=== PATIENT | male | born 1955 | race Caucasian/White ===

== ENCOUNTER 2019-03-28 10:40 | Inpatient (IN) ==
[2019-03-28 11:30] LABS: BASO# 0.02 X1000 (0.0-0.2); BASO% 0.1 % (0.0-0.8); EOS# 0.02 X1000 (0.0-0.7); EOS% 0.1 % (0.0-10.0); HEMATOCRIT 41.1 % (42.0-52.0); HEMOGLOBIN 13.6 g/dL (14.0-18.0); LYMPH# 1.53 X1000 (1.2-3.4); LYMPH% 6.5 % (20.5-51.1); MCH 29.4 PG (27-31); MCHC 33.1 g/dL (33-37); MONO# 1.99 X1000 (0.11-0.59); MONO% 8.5 % (1.7-9.3); MPV 10.8 FL (7.4-10.4); NEUT% 84.8 % (42.2-75.2); PLT 232 X1000 (130-400); RBC 4.62 XMIL (4.7-6.1); RDW 14.1 % (11.5-14.5); WBC 23.36 X1000 (4.8-10.8)
[2019-03-28 11:49] LABS: ALB/GLOB RATIO 1.4; BANDS 3 % (0-1); CALCIUM 9.5 mg/dL (8.8-10.2); CREATININE 1.3 mg/dL (0.7-1.2); LYMPHS 6 % (21-51); MONO 2 % (1-9); POTASSIUM 4.4 mmol/L (3.5-5.1); SEGS 80 % (42-75); TOTAL BILIRUBIN 0.6 mg/dL (0.20-1.00); TOTAL PROTEIN 6.8 g/dL (6.3-8.3)
[2019-03-28 11:50] LABS: HYPOCHROM 1+; URINE SOURCE CLEAN CATCH
[2019-03-28 11:55] LABS: BILIRUBIN URINE NEGATIVE (NEGATIVE); BLOOD URINE TRACE (NEGATIVE); COLOR YELLOW; GLUCOSE URINE >1000 mg/dL (NEGATIVE); KETONE URINE NEGATIVE (NEGATIVE); LEUKOCYTES URINE NEGATIVE (NEGATIVE); NITRITE URINE NEGATIVE (NEGATIVE); PROTEIN URINE 100 mg/dL (NEGATIVE); SP GRAVITY URINE 1.018; TURBIDITY URINE CLEAR (CLEAR); UROBILINOGEN URINE NORMAL (NORMAL)
[2019-03-28 11:57] LABS: UR EPITHELIAL CELLS <10 /HPF (<10); URINE BACTERIA NEGATIVE /HPF; URINE RBC <10 /HPF (<10); URINE WBC <10 /HPF (<10)
[2019-03-28] MEDS ORDERED: ROCEPHIN 1 GM in NS 50 ML IV ONE (14:09)
[2019-03-28 14:20] LABS: INR 1.01; PROTIME 13.4 Seconds (11.0-16.0)
[2019-03-28 14:21] LABS: PTT 34.1 Seconds (22.3-41.8)
--- NOTE | 2019-03-28 14:49 | Diag Imaging Result Doc PS360 ---
EXAM: CHEST-1 VIEW HISTORY: sepsis protocol TECHNIQUE: Single view COMPARISON: 01/25/2017 FINDINGS: The lungs are well expanded. The heart is not enlarged. The vessels are not distended. There are no infiltrates. No effusion identified. IMPRESSION: No pneumonia Electronically signed by Mainor Gonzalez 03/28/2019 2:47 PM
--- NOTE | 2019-03-28 14:53 | Diag Imaging Result Doc PS360 ---
EXAM: CT ABD/PELVIS W/IV CONT ONLY HISTORY: r/o appi rlq [id number] TECHNIQUE: CT abdomen and pelvis with intravenous contrast, but without oral contrast. COMPARISON: None. FINDINGS: There is fatty infiltration of the liver. No calcified gallstones or adjacent inflammation. Normal spleen, pancreas, and adrenal glands. The right kidney is hypertrophic. 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 No hydronephrosis. Normal aorta. The appendix is markedly distended with a diameter approaching 18 mm. There are several appendicoliths. There are adjacent inflammatory changes. No free air. No abscess. No bowel obstruction. There are small scattered mesenteric nodes. The urinary bladder is distended and appears normal. The prostate is not enlarged. There are several scattered distal colonic diverticula. IMPRESSION: Acute appendicitis This report was discussed with Dr. Singh in the emergency room on 03/28/2019 at 2:50 PM and was readback. This exam was performed using automated exposure control, adjustment of mA or kV according to patient size, and/or use of iterative reconstruction technique. Electronically signed by Mainor Gonzalez 03/28/2019 2:51 PM
[2019-03-28] MEDS ORDERED: MORPHINE IV ONE (15:05)
[2019-03-28] MEDS ORDERED: ZOFRAN IV ONE (15:05)
[2019-03-28] MEDS ORDERED: MORPHINE IV PRN (15:06)
[2019-03-28] MEDS ORDERED: NS 1,000 ML IV ONE (15:06)
[2019-03-28] MEDS ORDERED: ZOFRAN PO PRN (15:06)
--- NOTE | 2019-03-28 15:21 | PROVIDER DOCUMENTATION ---
This chart was entered by Roselyn Powell Scribe, acting as scribe for Carl Singh DO. HPI-Abdominal Pain/GI Problem - General Chief Complaint: Abdominal Pain Stated Complaint: [facility] REF-CAT ABDOMINAL PAIN Time Seen by Provider: 03/28/19 14:09 Source: patient Allergies/Adverse Reactions: Patient Allergies Allergy/AdvReac Type Severity Reaction Status Date / Time No Known Allergies Allergy Verified 03/28/19 14:25 - History of Present Illness-ABD Nature of Presenting Problems: 63yom presents to ED cc RLQ and LLQ pain, nausea and decreased appetite for last 2 days that started after eating grapenuts. Pt denies V/D/CP. Pt has hx of DM and has only his right kidney and is follwed by [facility]. Abdominal Pain Onset Location: reports: RLQ, LLQ Quality of Pain: reports: sharp Severity in ED: reports: moderate Onset/Duration: reports: 3 days ago Timing: reports: still present Activities at Onset: reports: eating Exposure to sick contacts?: No Modifying Factors: worse with: palpation Associated Symptoms: reports: nausea. denies: diarrhea, fever/chills, vomiting Dark Stools Present?: reports: none noticed Rectal Bleeding: reports: none Rectal Pain: reports: none Emesis Description: reports: none Bruising or Bleeding Gums?: No Similar Symptoms Previously?: Yes Recently seen or treated by another doctor?: Yes (was seen at [facility] this morning) Review of Systems - Adult - REVIEW OF SYSTEMS - ADULT Constitutional: reports: see HPI. denies: chills, fever, fatique Eyes: reports: no symptoms reported Ears, Nose, Mouth & Throat: reports: no symptoms reported Cardiovascular: reports: see HPI. denies: chest pain, palpitations, syncope Respiratory: reports: no symptoms reported Gastrointestinal: reports: see HPI, abdominal pain (LLQ and RLQ), nausea, poor appetite. denies: constipation, diarrhea, vomiting Genitourinary: reports: no symptoms reported Musculoskeletal: reports: no symptoms reported Integumentary: reports: no symptoms reported Neurological: reports: no symptoms reported Psychiatric: reports: no symptoms reported Endocrine: reports: no symptoms reported Hematologic/Lymphatic: reports: no symptoms reported Allergic/Immunologic: reports: no symptoms reported All Other Systems: Reviewed and Negative Past History - Adult - PAST MEDICAL HISTORY-ADULT Review of Records: reports: Nursing Assessment Review, Medications Reviewed, Social history reviewed & non-contributory. Major Childhood Illnesses: reports: denies history Cardiovascular: reports: denies history Respiratory: reports: denies history Gastrointestinal: reports: denies history Obstetrical/Gynecological: reports: denies history Genitourinary: reports: denies history Musculoskeletal: reports: denies history Neurological: reports: denies history Endocrine/Immune: reports: denies history Other Conditions: reports: denies history - IMMUNIZATION STATUS Childhood Immunizations: See Nurse Assessment Flu Vaccine: See Nurse Assessment - FAMILY HISTORY Family History: reviewed, not pertinent - SOCIAL HISTORY Smoking: denies Physical Exam-General - PHYSICAL EXAM-ADULT Initial Vital Signs Reviewed: Yes - CONSTITUTIONAL General Appearance: appears well, alert, no apparent distress, obese. negative: anxious, combative - EYES Eyes: PERRL/EOMI, pink conjunctivae. negative: photophobia - HEAD, EARS, NOSE, MOUTH & THROAT HENMT: normocephalic/atraumatic, moist mucous membranes, normal ENT inspection. negative: angioedema - NECK Neck: non-tender, full range of motion, supple, normal inspection. negative: C- spine tenderness - RESPIRATORY Respiratory: chest non-tender, lungs clear, normal breath sounds, no pleuratic chest pain, no respiratory distress, no accessory muscle use. negative: crackles, rales, rhonchi, stridor, wheezing - CARDIOVASCULAR Cardiovascular: normal peripheral pulses, regular rate, rhythm, no edema, no gallop, no JVD, no murmur. negative: bradycardia, tachycardia - GASTROINTESTINAL (ABDOMEN) Abdominal Exam: normal bowel sounds, soft, no organomegaly, no pulsatile mass, tenderness (RLQ, LLQ). negative: distended, guarding, rigid, rebound - LYMPHATIC Lymphatic: no adenopathy. negative: enlargement, striations - MUSCULOSKELETAL Back Exam: normal inspection, no CVA tenderness, no vertebral tenderness. negative: kyphosis Extremity: normal range of motion, non-tender, normal gait, normal inspection, no pedal edema, no calf tenderness, normal capillary refill. negative: deformity, erythema, swelling, tenderness - SKIN Integumentary: normal color, normal turgor, warm/dry. negative: diaphoresis, ecchymosis, erythema, jaundice, swelling, tenderness - PSYCHIATRIC Psych/Mental Status: normal mood/affect, oriented x 3. negative: anxious, disheveled Progress - PLAN OF CARE/RESULTS Progress/Plan/Lab Results: Vital Signs - 8 hr 03/28/19 11:02 Temperature 100.7 F H Pulse Rate 108 H Respiratory Rate 20 Blood Pressure 127/77 O2 Sat by Pulse Oximetry 96 Laboratory Results - last 24 hr 03/28/19 03/28/19 03/28/19 11:09 11:09 11:09 WBC 23.36 H RBC 4.62 L Hgb 13.6 L Hct 41.1 L MCV 89.0 MCH 29.4 MCHC 33.1 RDW Std Deviation 14.1 Plt Count 232 MPV 10.8 H Neut % (Auto) 84.8 H Lymph % (Auto) 6.5 L [place] % (Auto) 8.5 Eos % (Auto) 0.1 Baso % (Auto) 0.1 Neut # (Auto) 19.80 H Lymph # (Auto) 1.53 [place] # (Auto) 1.99 H Eos # (Auto) 0.02 Baso # (Auto) 0.02 Segmented Neutrophils 80 H Band Neutrophils 3 H Lymphocytes 6 L Monocytes 2 Metamyelocytes 3.0 Myelocytes 6.0 Hypochromia 1+ Sodium 132 L Potassium 4.4 Chloride 98 Carbon Dioxide 20 L Anion Gap 14 BUN 20 Creatinine 1.3 H Estimated GFR/1.73 m2 55 BUN/Creatinine Ratio 15 Glucose 192 H Calculated Osmolality 272 Calcium 9.5 Total Bilirubin 0.60 AST 16 ALT 20 Alkaline Phosphatase 81 Total Protein 6.8 Albumin 4.0 Globulin 2.8 Albumin/Globulin Ratio 1.4 Amylase 75 Lipase 28 Urine Source CLEAN CATCH Urine Color YELLOW Urine Turbidity CLEAR Urine pH 6.0 Ur Specific [place] 1.018 Urine Protein 100 A Ur Glucose (Stick) >1000 A Ur Ketones (Stick) NEGATIVE Urine Blood TRACE A Urine Nitrite NEGATIVE Urine Bilirubin NEGATIVE Urobilinogen Dipstick NORMAL Urine Leukocytes NEGATIVE Urine WBC (Auto) <10 Urine RBC (Auto) <10 U Epithel Cells (Auto) <10 Urine Bacteria (Auto) NEGATIVE Orders Category Date Time Status Cardiac Monitoring DIRECTED Care 03/28/19 13:56 Active IV Insertion ORDERED Care 03/28/19 13:56 Active Notify MD of + Sepsis Screen NOW Care 03/28/19 13:56 Active Notify Physician As Ordered Care 03/28/19 13:56 Active Saline Loc DIRECTED Care 03/28/19 11:05 Active NPO Diet 03/28/19 11:05 Active CHEST-1 VIEW [RAD] Stat Exams 03/28/19 13:[address] ABD/PELVIS W/IV CONT ONLY [CT] Stat Exams 03/28/19 13:54 Ordered AMYLASE [CHEM] Stat Lab 03/28/19 11:09 Completed BLOOD CULTURE [BLDCUL] Stat Lab 03/28/19 13:56 Uncollected CBC WITH ELECTRONIC DIFF [HEME] Stat Lab 03/28/19 11:09 Completed CK PROFILE [SP CHEM] Stat Lab 03/28/19 11:09 Received COMPREHENSIVE METABOLIC PANEL [CHEM] Stat Lab 03/28/19 11:09 Completed LACTATE, PLASMA [CHEM] Q3H Lab 03/28/19 14:00 Uncollected LACTATE, PLASMA [CHEM] Q3H Lab 03/28/19 17:00 Uncollected LACTATE, PLASMA [CHEM] Q3H Lab 03/28/19 20:00 Uncollected LIPASE [CHEM] Stat Lab 03/28/19 11:09 Completed PROTIME WITH INR [COAG] Stat Lab 03/28/19 11:09 Received PTT [COAG] Stat Lab 03/28/19 11:09 Received TROPONIN T HIGH SENSITIVITY Stat Lab 03/28/19 11:09 Received URINALYSIS W/POSS RFLX CULT [URINALYSIS] Stat Lab 03/28/19 11:09 Completed Oxygen Device Stat Oth 03/28/19 13:56 Active Result Diagrams: 03/28/19 11:09 03/28/19 11:09 - XRAY 1 XRAY: Bilateral XRAY Study: Chest Impression: See EMR Report (IMPRESSION: No pneumonia Electronically signed by Mainor Gonzalez 03/28/2019 2:47 PM) - CT/MRI 1 CT Study: Abdomen Impression: See EMR Report (IMPRESSION: Acute appendicitis This report was discussed with Dr. Singh in the emergency room on 03/28/2019 at 2:50 PM and was readback. This exam was performed using automated exposure control, adjustment of mA or kV according to patient size, and/or use of iterative reconstruction technique. Electronically signed by Mainor Gonzalez 03/28/2019 2:51 PM) - CONSULTS/PCP/HOSPITALIST Notification #1 *Consult/PCP/Hospitalist*: Radiologist Time Discussed: 14:12 Consult Disposition: other (says it's fine to give pt contrast for CT scan even with 1 kidney) #2 Consult: Dr. Morrow Time Discussed: 14:55 Consult Disposition: Admit (accepted pt to his service) Departure - Departure Date of Disposition Decision: 03/28/19 Time of Disposition Decision: 14:57 DIAGNOSIS: Acute appendicitis Disposition: ADMITTED INPATIENT 09 Certified Medical Emergency: Emergent Condition: Stable Additional Instructions: ED Follow Up Instructions: You have been treated by a care provider in the Emergency Department. These instructions are being provided to you so you can have an understanding of how to care for yourself upon discharge. Upon discharge from the Emergency Department, you are responsible for making arrangements for follow-up care by a physician of your choice. Take all prescribed medications as directed. Return to the Emergency Department immediately for any new or worsening sy mptoms. You may call the Physician Referral phone number at [phone] to obtain a list of Physicians who are taking new patients. Referrals and Follow-Ups: Valentina Loyd MD [Primary Care Provider] - - Critical Care Note This patient required my direct & personal management of CC.: No Attestation - Physician/ MAYITO Attestation Patient care was provided by Advanced Practice Provider:: No The physician spent face to face time with patient:: Yes Advanced Practice Provider documentation review:: Supervising physician onsite and consulted in the evaluation and care of this patient. The physician did have a face to face encounter with the patient. This chart was documented by the indicated scribe, (Roselyn Powell Scribe) and accurately reflects the services I performed and decisions made by me, Carl Singh DO, as attested by the provider's signature.
[2019-03-28] MEDS ORDERED: LR 1,000 ML ONE (16:27)
[2019-03-28] MEDS ORDERED: XYLOCAINE 1%/EPI 1:100,000 ONE (16:27)
[2019-03-28] MEDS ORDERED: DIPRIVAN 1% ONE (16:34)
[2019-03-28] MEDS ORDERED: NORCURON ONE (16:38)
[2019-03-28] MEDS ORDERED: QUELICIN (DOSE) ONE ×2 (16:38→17:22)
[2019-03-28] MEDS ORDERED: XYLOCAINE-MPF 2% ONE (16:38)
[2019-03-28] MEDS ORDERED: SODIUM CHLORIDE 0.9% 10 ML ONE (16:38)
[2019-03-28] MEDS ORDERED: FENTANYL ONE (16:39)
--- NOTE | 2019-03-28 16:40 | EKG Report ---
Test Performed on : 03/28/2019 4:29:49 PM Test Reason : SURGERY Blood Pressure : / mmHG Vent. Rate : 103 BPM Atrial Rate : 103 BPM P-R Int : 174 ms QRS Dur : 108 ms QT Int : 334 ms P-R-T Axes : 051 -46 051 degrees QTc Int : 437 ms Sinus tachycardia. Left anterior fascicular block Abnormal ECG No previous ECGs available Confirmed by Isaías HEALY, Michael Kruger ([id number]) on 03/31/2019 10:25:12 PM
[2019-03-28] MEDS ORDERED: OFIRMEV 1000 MG/ISOTONIC SOLN 1,000 MG/100 ML BOTTLE ONE (17:41)
[2019-03-28] MEDS ORDERED: TORADOL ONE (17:41)
[2019-03-28] MEDS ORDERED: ZOFRAN ONE (17:41)
[2019-03-28] MEDS ORDERED: DECADRON ONE (17:41)
[2019-03-28] MEDS ORDERED: ROBINUL ONE (18:22)
[2019-03-28] MEDS: DILAUDID ONE ×2 (19:27→19:30)
[2019-03-28 19:52] LABS: URINE SOURCE CATH
[2019-03-28 19:58] LABS: BILIRUBIN URINE NEGATIVE (NEGATIVE); BLOOD URINE TRACE (NEGATIVE); COLOR YELLOW; GLUCOSE URINE >1000 mg/dL (NEGATIVE); KETONE URINE NEGATIVE (NEGATIVE); LEUKOCYTES URINE NEGATIVE (NEGATIVE); NITRITE URINE NEGATIVE (NEGATIVE); PROTEIN URINE 100 mg/dL (NEGATIVE); SP GRAVITY URINE 1.023; TURBIDITY URINE CLEAR (CLEAR); UROBILINOGEN URINE NORMAL (NORMAL)
[2019-03-28 19:59] LABS: UR EPITHELIAL CELLS <10 /HPF (<10); URINE BACTERIA NEGATIVE /HPF; URINE RBC <10 /HPF (<10); URINE WBC <10 /HPF (<10)
[2019-03-28] MEDS ORDERED: NORCO-10 PO PRN (20:04)
[2019-03-28] MEDS ORDERED: NS 1,000 ML IV SCH (20:04)
[2019-03-28] MEDS ORDERED: SALINE LOCK IV FLUID XX ONE (20:04)
[2019-03-28] MEDS ORDERED: HUMULIN R IV ONE (20:04)
[2019-03-28] MEDS: ZOSYN 3.375 GM in NS 50 ML IV SCH (22:04)
[2019-03-28] MEDS ORDERED: ZOSYN ONE (22:04)
[2019-03-28] MEDS: PERIDEX MT SCH (22:04)
[2019-03-29] MEDS: ZOSYN 3.375 GM in NS 50 ML IV SCH ×2 (03:49→09:35)
--- NOTE | 2019-03-29 04:54 | OPERATIVE NOTE ---
PROCEDURE DATE: 03/28/2019 PREOPERATIVE DIAGNOSIS: Acute appendicitis. POSTOPERATIVE DIAGNOSIS: Gangrenous appendicitis. SURGEON: Tim Morrow MD. PROCEDURE: Laparoscopic appendectomy. ANESTHESIA: General. ESTIMATED BLOOD LOSS: 10 mL. COMPLICATIONS: None apparent. SPECIMENS: Appendix. FINDINGS: The appendix was gangrenous in multiple areas with surrounding fibrinous exudate, but no obvious gross pus or stool leaking out. The appendicitis extended all the way to the base of the appendix, necessitating a portion of the cecal wall to be taken. TECHNIQUE: The patient was brought to the operating room and placed supine on the table. General anesthesia was induced. A Godoy catheter was placed. He was prepped and draped in usual sterile fashion. Marcaine 0.25% with epinephrine was used to anesthetize our incisions. A 12 mm incision was made above the umbilicus in the midline. The fascia was exposed and incised sharply. Entry into the peritoneal cavity was obtained under direct vision with the Optiview device. Pneumoperitoneum was established. The camera was inserted. There was no evidence of injury to underlying structures. He was placed in Trendelenburg. Two 5 mm incision ports were placed, 1 in the left lower quadrant and 1 lower suprapubic midline. I found the gangrenous appendix in the right lower quadrant and began mobilizing off of the retroperitoneum and right lateral sidewall with the LigaSure device and hook cautery. I then divided the appendiceal mesentery with the LigaSure down to the base of the appendix. The Endo-ARMINDA stapler was then used to fire across a portion of the cecal wall, bringing the appendix with it. When this was accomplished, the appendix was placed in an EndoCatch bag. I irrigated with saline and suctioned out the saline. There was no signs of any bleeding. We brought the bag and appendix up into the epigastric port site. The abdomen was desufflated. The ports were removed. The fascia around the bag was incised several mm to allow removal of the appendix and bag. I then closed the umbilical fascia with a [id number] 0 Vicryl. The skin was closed with 4-0 subcuticular Biosyn and Steri- Strips. He was awakened in stable condition and transferred to the recovery room. cc: Tim Morrow MD
[2019-03-29 07:32] VITALS: BP 134/68
[2019-03-29] MEDS ORDERED: ZYLOPRIM PO SCH (09:00)
[2019-03-29] MEDS ORDERED: PRINIVIL PO SCH (09:00)
[2019-03-29] MEDS: PERIDEX MT SCH (09:35)
--- NOTE | 2019-03-29 15:40 | DISCHARGE SUMMARY ---
ADMISSION DATE: 03/28/2019 DISCHARGE DATE: 03/29/2019 SUBJECTIVE: The patient is doing well. He has some soreness but is ambulating, voiding, and tolerating a liquid diet. He is afebrile. OBJECTIVE: Vital Signs: Vital signs are stable. General: He is awake, alert, oriented x3. No acute distress. Gastrointestinal: Soft, appropriately tender. Incision is clean, dry, and intact. No work of breathing. ASSESSMENT AND PLAN: A 63-year-old male postoperative day 1 laparoscopic appendectomy for gangrenous appendicitis. He is doing well. DISPOSITION: We will discharge him home. Instructions were given. He will have a prescription for [place] and Augmentin. cc: Tim Morrow MD
== END 2019-03-29 10:43 | disposition home or self-care (01) | DRG 342 ==
LOC: ED 10:40 → 4N 10:41
PROVIDERS: ADMIT Surgery; ATTEND Surgery